=== PATIENT | male | born 1980 | race Caucasian/White ===

== ENCOUNTER 2016-12-16 12:59 | Emergency (ER) | payer SELFPAY ==
[~2016-12-16] VITALS: Ht 182.9 cm; Wt 99.8 kg
[2016-12-16 13:02] VITALS: BP 154/104
== END 2016-12-16 13:30 | disposition left against medical advice (07) ==
LOC: ED 12:59
DX: T40.2X1A Poisoning by other opioids, accidental (unintentional), initial encounter (principal); Y92.89 Other specified places as the place of occurrence of the external cause